=== PATIENT | female | born 1985 | race Caucasian/White ===

== ENCOUNTER 2016-10-18 00:09 | Emergency (ER) | payer OTHER ==
[~2016-10-18] VITALS: Ht 160 cm; Wt 81.8 kg
--- NOTE | 2016-10-18 00:32 | PD ---
HPI Chief Complaint: ba Time Seen by Provider: 00:20 Travel History International Travel<30 days: No Contact w/Intl Traveler<30days: No Traveled to known affect area: No History of Present Illness HPI 31-year-old female presents under Soares act initiated by [employer]. According to her paperwork the patient was intoxicated, the family reported that she climbed over the balcony of her [address]th floor hotel with no regards to her own safety. She then stated that she "wished she could burp the building to the ground." The patient reports that she is currently in town with family for a wedding. She reports that she did drink some wine tonight and then had an argument with her parents. She reports that she was not attempting to harm herself. She denies any suicidal or homicidal ideation. She denies any drug use. She has no medical complaints at this time. [facility] Past Medical History Hepatitis: Yes Social History Alcohol Use: Yes Tobacco Use: Yes Allergies-Medications (Allergen,Severity, Reaction): Coded Allergies: Ceclor (Verified Allergy, Unknown, 10/18/16) Penicillin (Verified Allergy, Unknown, 10/18/16) Reported Meds & Prescriptions Reported Meds & Active Scripts Active Reported Propranolol (Propranolol HCl) 40 Mg Tab 40 Mg PO Q12HR Buspirone (Buspirone HCl) 30 Mg Tab 30 Mg PO BID Wellbutrin Xl 24 HR (Bupropion HCl) 150 Mg Tab 100 Mg PO DAILY Zoloft (Sertraline HCl) 100 Mg Tab 200 Mg PO DAILY Trazodone (Trazodone HCl) 100 Mg Tablet 200 Mg PO HS Review of Systems Except as stated in HPI: all other systems reviewed are Neg Physical Exam Narrative GENERAL: This is an intoxicated disheveled appearing female who is in no acute distress. SKIN: Warm and dry. HEAD: Atraumatic. Normocephalic. EYES: Pupils equal and round. No scleral icterus. No injection or drainage. ENT: No nasal bleeding or discharge. Mucous membranes pink and moist. NECK: Trachea midline. No JVD. CARDIOVASCULAR: Regular rate and rhythm. No murmur appreciated. RESPIRATORY: No accessory muscle use. Clear to auscultation. Breath sounds equal bilaterally. GASTROINTESTINAL: Abdomen soft, non-tender, nondistended. Hepatic and splenic margins not palpable. MUSCULOSKELETAL: No obvious deformities. No clubbing. No cyanosis. No edema. NEUROLOGICAL: Awake and alert. No obvious cranial nerve deficits. Motor grossly within normal limits. Slurred speech. PSYCHIATRIC: Intoxicated, agitated. Data Data Last Documented VS Vital Signs Date Time Temp Pulse Resp B/P Pulse Ox O2 Delivery O2 Flow Rate FiO2 10/18/16 00:54 98.9 90 22 98 Orders Complete Blood Count With Diff (10/18/16 00:29) Comprehensive Metabolic Panel (10/18/16 00:29) Ed Urine Pregnancytest Poc (10/18/16 00:29) Psych Screen (10/18/16 00:29) Drug Screen, Random Urine (10/18/16 00:29) Alcohol (Ethanol) (10/18/16 00:29) ^ Sitter (10/18/16 00:33) Nicotine 14 Mg Patch.24 Hr (Habitrol 14 (10/18/16 00:45) Labs Laboratory Tests Test 10/18/16 00:30 White Blood Count 8.1 TH/MM3 Red Blood Count 4.91 MIL/MM3 Hemoglobin 14.9 GM/DL Hematocrit 44.1 % Mean Corpuscular Volume 89.9 FL Mean Corpuscular Hemoglobin 30.3 PG Mean Corpuscular Hemoglobin 33.7 % Concent Red Cell Distribution Width 13.0 % Platelet Count 218 TH/MM3 Mean Platelet Volume 7.9 FL Neutrophils (%) (Auto) 54.3 % Lymphocytes (%) (Auto) 36.7 % Monocytes (%) (Auto) 7.0 % Eosinophils (%) (Auto) 1.5 % Basophils (%) (Auto) 0.5 % Neutrophils # (Auto) 4.4 TH/MM3 Lymphocytes # (Auto) 3.0 TH/MM3 Monocytes # (Auto) 0.6 TH/MM3 Eosinophils # (Auto) 0.1 TH/MM3 Basophils # (Auto) 0.0 TH/MM3 CBC Comment DIFF FINAL Differential Comment Sodium Level 141 MEQ/L Potassium Level 3.7 MEQ/L Chloride Level 108 MEQ/L Carbon Dioxide Level 23.7 MEQ/L Anion Gap 9 MEQ/L Blood Urea Nitrogen 7 MG/DL Creatinine 0.83 MG/DL Estimat Glomerular Filtration 80 ML/MIN Rate Random Glucose 114 MG/DL Calcium Level 8.2 MG/DL Total Bilirubin 0.4 MG/DL Aspartate Amino Transf 62 U/L (AST/SGOT) Alanine Aminotransferase 91 U/L (ALT/SGPT) Alkaline Phosphatase 60 U/L Total Protein 8.0 GM/DL Albumin 3.9 GM/DL Urine Opiates Screen NEG Urine Barbiturates Screen NEG Urine Amphetamines Screen NEG Urine Benzodiazepines Screen NEG Urine Cocaine Screen NEG Urine Cannabinoids Screen NEG Ethyl Alcohol Level 207 MG/DL MDM Medical Decision Making Medical Screen Exam Complete: Yes Emergency Medical Condition: Yes Medical Record Reviewed: Yes Differential Diagnosis Alcohol intoxication, substance induced mood disorder, acute psychosis, major depressive disorder, bipolar disorder Narrative Course 31-year-old female presents under Soares act for psychiatric evaluation. A sitter has been ordered. A nicotine patch has been ordered. Mental health screening discussed with the patient. Psychiatric screen ordered. Liver enzymes are mildly elevated. Alcohol level is 208. The patient is medically cleared for psychiatric disposition. Diagnosis Primary Impression: Alcohol intoxication Qualified Code: F10.920 - Alcoholic intoxication without complication Bakari Li Oct 18, 2016 00:32
[2016-10-18] MEDS ORDERED: NICOTINE 14 MG/24 HR PATCH T-DERMAL ONE (00:45)
[2016-10-18 00:54] VITALS: PULSE 90; RESP 22; TEMP 98.9; O2SAT 98
[2016-10-18] MEDS ORDERED: PROP40TA3 PO (01:05)
[2016-10-18] MEDS ORDERED: ZOLO100T PO (01:05)
[2016-10-18] MEDS ORDERED: TRAZ100T6 PO (01:05)
[2016-10-18] MEDS ORDERED: BUSP30TA PO (01:05)
[2016-10-18] MEDS ORDERED: BUPR150XL PO (01:05)
[2016-10-18 01:10] LABS: AUTOMATED NEUTROPHIL # 4.4 TH/MM3 (1.8-7.7); BASOPHIL % 0.5 % (0.0-2.0); EOSINOPHIL # 0.1 TH/MM3 (0-0.4); EOSINOPHIL % 1.5 % (0.0-4.0); HEMATOCRIT 44.1 % (35.0-46.0); HEMO FLAGS DIFF FINAL; LYMPH % 36.7 % (9.0-44.0); MEAN CELL VOLUME 89.9 FL (80.0-100.0); MEAN CORPUSCULAR HEMOGLOBIN 30.3 PG (27.0-34.0); MEAN CORPUSCULAR HGB CONC 33.7 % (32.0-36.0); NEUT % 54.3 % (16.0-70.0); PLATELET COUNT 218 TH/MM3 (150-450); RED BLOOD COUNT 4.91 MIL/MM3 (4.00-5.30); WHITE BLOOD COUNT 8.1 TH/MM3 (4.0-11.0)
[2016-10-18 01:23] LABS: AMPHETAMINE, URINE NEG (NEG); BARBITURATES, URINE NEG (NEG); COCAINE, URINE NEG (NEG)
[2016-10-18 01:24] LABS: ALKALINE PHOSPHATASE 60 U/L (45-117); TOTAL BILIRUBIN ADULT 0.4 MG/DL (0.2-1.0)
[2016-10-18 01:39] LABS: ALT (GPT) 91 U/L (10-53); ANION GAP 9 MEQ/L (5-15); AST (GOT) 62 U/L (15-37); BICARBONATE 23.7 MEQ/L (21.0-32.0); BLOOD UREA NITROGEN 7 MG/DL (7-18); CHLORIDE 108 MEQ/L (98-107); GLOMERULAR FILTRATION RATE 80 ML/MIN (>89); SODIUM (NA) 141 MEQ/L (136-145)
[2016-10-18 01:41] LABS: POTASSIUM 3.7 MEQ/L (3.5-5.1)
[2016-10-18] MEDS ORDERED: LORazepam 2 MG/ML VIAL IM ONE (02:00)
[2016-10-18 02:18] VITALS: BP 145/82; PULSE 83; RESP 22; O2SAT 99
[2016-10-18 10:00] VITALS: BP 126/70; PULSE 80; RESP 18
[2016-10-18 11:39] VITALS: BP 126/70
--- NOTE | 2016-10-18 11:45 | PD ---
History of Present Illness Chief Complaint: Psychiatric Symptoms Time Seen by Provider: 11:10 Travel History International Travel<30 Days: No Contact w/Intl Traveler<30days: No Known affected area: No Legal Status Legal Status: Soares Act Soares Act Signed By: Deena Hudson History of Present Illness: History of Present Illness HPI 31-year-old female with history of depression, anxiety and substance use disorder who presents under Soares act initiated by [employer]. According to her paperwork the patient's family reported that while intoxicated she climbed over the balcony of her 14th floor hotel with no regards to her own safety. She then stated that she "wished she could burp the building to the ground." The patient upon arrival to Ed with BAl of 207. EMTR reviewed. No previous contact with [facility] psychiatry dept. The patient was monitored in J pod and she presented no behavioral concerns and no suicidality. This morning she is seen with nurse Sandhu. She is clinically sober. Speech is clear and logical. There is no indication of xavier or hypomania. There is no indication of any psychosis. She denies feeling depressed. Denies suicidal ideation, intent or plan. She states that she had been drinking with her family at a rehearsal dinner and was " cut off " from the bar. She was angry and went back to her hotel room. After that she wanted to go play cards with some people and her parents were trying to prevent her from leaving the room. It was at that point that she climbed over the balcony into her own hotel room so that she could then go down to the pool area to play cards. She denies that this was a suicide attempt. She admits now that she is sober that it was foolish and dangerous thing to do. She is requesting discharge as she has a wedding to attend this afternoon. She has no recollection of ever saying she would burn the hotel down and states " Oh my God, I would never do that. My family and other people are there.". I called her mother at [phone]. She states that " something like this has never happened before and that she does not believe this was a suicide attempt but rather impaired judgement while intoxicated. She has no reservations about the patient being discharged. She will pick her up. [facility] Past Medical History Anxiety: Yes Depression: Yes Hepatitis: Yes Immunizations Current: Yes ?: Not : 0 Para: 0 Past Surgical History Surgical History: No Previous Surgery Psychiatric History Psychiatric History Hx Psychiatric Treatment: Patient with hx of depression and anxiety. Treated for attempted OD 2 years ago in [place]. Now sees an [facility] provider. History of Inpatient Treatment: Yes Guns or firearms in home: No Social History Single female who is here visiting from [place]. 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 Lives with her parents. Hx Alcohol Use: Yes (daily) Hx Tobacco Use: Yes Hx Substance Use: Yes (crack, heroin) Substance Use Type: Alcohol, Crack, Nicotine/Cigarettes, Heroin Hx of Substance Use Treatment: Yes (As per mother extensive history of substance use. Has been sober for one and half year . recently began to drink alcohol) Allergies-Medications (Allergen,Severity, Reaction): Coded Allergies: Ceclor (Verified Allergy, Unknown, 10/18/16) Penicillin (Verified Allergy, Unknown, 10/18/16) Reported Meds & Prescriptions Reported Meds & Active Scripts Active Reported Propranolol (Propranolol HCl) 40 Mg Tab 40 Mg PO Q12HR Buspirone (Buspirone HCl) 30 Mg Tab 30 Mg PO BID Wellbutrin Xl 24 HR (Bupropion HCl) 150 Mg Tab 100 Mg PO DAILY Zoloft (Sertraline HCl) 100 Mg Tab 200 Mg PO DAILY Trazodone (Trazodone HCl) 100 Mg Tablet 200 Mg PO HS Review of Systems Except as stated in HPI: all other systems reviewed are Neg Exam Alert: Yes [place]: Person (ox4) Mood: Calm Affect: Appropriate Speech: Clear, Logical Eye Contact: Normal Memory Intact: Comment (No impairment) Hallucinations: Other (Negative) Delusions: No Suicidal: Ideation (Deneis any) Homicidal: Ideation (denies any) Insight/Judgement Fair. Notimpaired. [facility] Medical Decision Making Medical Record Reviewed: Yes Assessment/Plan 31-year-old female with history of depression, anxiety and substance use disorder who presents under Soares act initiated by [employer]. According to her paperwork the patient's family reported that while intoxicated she climbed over the balcony of her [address] hotel with no regards to her own safety. She then stated that she "wished she could burp the building to the ground." The patient was intoxicated at the time. She was allowed to sober up clinically and at this time presents no suicidal or homicidal ideation, intent or plan. She dos not meet BA criteria and is requesting discharge. [facility] Orders Complete Blood Count With Diff (10/18/16 00:29) Comprehensive Metabolic Panel (10/18/16 00:29) Ed Urine Pregnancytest Poc (10/18/16 00:29) Psych Screen (10/18/16 00:29) Drug Screen, Random Urine (10/18/16 00:29) Alcohol (Ethanol) (10/18/16 00:29) ^ Sitter (10/18/16 00:33) Nicotine 14 Mg Patch.24 Hr (Habitrol 14 (10/18/16 00:45) Lorazepam Inj (Ativan Inj) (10/18/16 02:00) Diet Regular Basic (10/18/16 Breakfast) Results Vital Signs Date Time Temp Pulse Resp B/P Pulse Ox O2 Delivery O2 Flow Rate FiO2 10/18/16 11:39 126/70 10/18/16 10:00 80 18 126/70 Room Air 10/18/16 02:18 83 22 145/82 99 10/18/16 00:54 98.9 90 22 98 Laboratory Tests Test 10/18/16 00:30 White Blood Count 8.1 Red Blood Count 4.91 Hemoglobin 14.9 Hematocrit 44.1 Mean Corpuscular Volume 89.9 Mean Corpuscular Hemoglobin 30.3 Mean Corpuscular Hemoglobin 33.7 Concent Red Cell Distribution Width 13.0 Platelet Count 218 Mean Platelet Volume 7.9 Neutrophils (%) (Auto) 54.3 Lymphocytes (%) (Auto) 36.7 Monocytes (%) (Auto) 7.0 Eosinophils (%) (Auto) 1.5 Basophils (%) (Auto) 0.5 Neutrophils # (Auto) 4.4 Lymphocytes # (Auto) 3.0 Monocytes # (Auto) 0.6 Eosinophils # (Auto) 0.1 Basophils # (Auto) 0.0 CBC Comment DIFF FINAL Differential Comment Sodium Level 141 Potassium Level 3.7 Chloride Level 108 Carbon Dioxide Level 23.7 Anion Gap 9 Blood Urea Nitrogen 7 Creatinine 0.83 Estimat Glomerular Filtration 80 Rate Random Glucose 114 Calcium Level 8.2 Total Bilirubin 0.4 Aspartate Amino Transf 62 (AST/SGOT) Alanine Aminotransferase 91 (ALT/SGPT) Alkaline Phosphatase 60 Total Protein 8.0 Albumin 3.9 Urine Opiates Screen NEG Urine Barbiturates Screen NEG Urine Amphetamines Screen NEG Urine Benzodiazepines Screen NEG Urine Cocaine Screen NEG Urine Cannabinoids Screen NEG Ethyl Alcohol Level 207 Diagnosis Primary Impression: Alcohol intoxication Psychiatrically Cleared: Yes Departure Forms: Tests/Procedures Patient Instructions: General Instructions Additional Instructions: RETURN TO ED IF SYMPTOMS REOCCUR Med/ Other Pt Specific Info: No Change to Meds Disposition: 01 DISCHARGE HOME Condition: Stable Problem Qualifiers Primary Impression: Alcohol intoxication Qualified Code: F10.920 - Alcoholic intoxication without complication Mariama Amaya Oct 18, 2016 11:45
== END 2016-10-18 12:00 | disposition home or self-care (01) ==
LOC: NEPD 00:09 → NEPJ 12:00
DX: F10.129 Alcohol abuse with intoxication, unspecified (principal); F32.9 Major depressive disorder, single episode, unspecified; F41.9 Anxiety disorder, unspecified; Z79.899 Other long term (current) drug therapy; Z72.0 Tobacco use; Z88.0 Allergy status to penicillin; Z88.1 Allergy status to other antibiotic agents
CPT/HCPCS: 80053; 80307; 84703; 85025; 96372; 99284; J2060